=== PATIENT | female | born 1965 | race Caucasian/White ===

== ENCOUNTER 2020-02-16 14:50 | Emergency (ER) | payer OTHER ==
[~2020-02-16] VITALS: Ht 170.2 cm; Wt 90.7 kg
[2020-02-16] MEDS ORDERED: PREDNISONE 20 M20 MG PO (17:04)
[2020-02-16] MEDS ORDERED: PROMETH-CODEIN 65 ML PO (17:04)
[2020-02-16] MEDS ORDERED: ZPAK PO (17:04)
[2020-02-16 17:30] VITALS: BP 132/89
== END 2020-02-16 17:30 | disposition home or self-care (01) ==
LOC: ER 14:50
DX: R05 Cough (principal); Z20.828 Contact with and (suspected) exposure to other viral communicable diseases